=== PATIENT | female | born 1980 | race American Indian/Alaskan Native ===

== ENCOUNTER 2017-01-22 18:50 | Emergency (ER) | payer MEDICAID ==
[2017-01-22 19:02] VITALS: RESP 18; TEMP 99; O2SAT 100; BMI 37.9
--- NOTE | 2017-01-22 19:18 | ED PDOC ---
Arrival/HPI - General Chief Complaint: Back Pain Time Seen by Provider: 01/22/17 19:01 Historian: Patient - History of Present Illness Narrative History of Present Illness (Text): 01/22/17 19:08 A 36 year old female, whose past medical history includes hypertension and Epilepsy on Dilantin, presents to the emergency department complaining of intermittent left upper back pain for 1 month. Patient reports today her pain radiated towards her chest causing her to come in for further evaluation. She states the pain is worse when taking deep breaths and reports she had a nose bleed. Patient notes a headache but denies any trauma, injury, fever, chills, nausea, vomiting, diarrhea, abdominal pain, urinary symptoms, hematuria, hematochezia, dizziness or any other complaints. Time/Duration: Other (1 month) Symptom Course: Worsening (today) Quality: Other Context: Other Past Medical History - Provider Review Nursing Documentation Reviewed: Yes - Infectious Disease Hx of Infectious Diseases: None - Reproductive Menopause: No - Cardiac Hx Hypertension: Yes - Neurological Hx Seizures: Yes - Psychiatric Hx Substance Use: No Family/Social History - Physician Review Nursing Documentation Reviewed: Yes Family/Social History: No Known Family HX Smoking Status: Heavy Smoker > 10 Cigarettes Daily Hx Alcohol Use: No Hx Substance Use: No Allergies/Home Meds Allergies/Adverse Reactions: Allergies tomato Allergy (Verified 01/22/17 19:08) URTICARIA Review of Systems - Physician Review All systems were reviewed & negative as marked: Yes - Review of Systems Constitutional: absent: Fevers, Night Sweats ENT: Epistaxis Cardiovascular: Chest Pain Gastrointestinal: absent: Abdominal Pain, Diarrhea, Nausea, Vomiting, Hematochezia Genitourinary Female: absent: Dysuria, Frequency, Hematuria, Urine Output Changes Musculoskeletal: Back Pain (Left upper back pain) Neurological: Headache. absent: Dizziness Physical Exam Vital Signs Reviewed: Yes Vital Signs Temp Pulse Resp BP Pulse Ox 01/22/17 20:53 68 18 131/86 100 01/22/17 19:01 99.0 F 72 18 133/92 H 100 Temperature: Afebrile Blood Pressure: Hypertensive Pulse: Regular Respiratory Rate: Normal Appearance: Positive for: Well-Appearing, Non-Toxic, Comfortable Pain Distress: None Mental Status: Positive for: Alert and Oriented X 3 - Systems Exam Head: Present: Atraumatic, Normocephalic Pupils: Present: PERRL Conjunctiva: Present: Normal Mouth: Present: Moist Mucous Membranes Pharnyx: Present: Normal. No: ERYTHEMA Nose (External): Present: Atraumatic Nose (Internal): Present: Normal Inspection Neck: Present: Normal Range of Motion Respiratory/Chest: Present: Clear to Auscultation, Good Air Exchange, Tender to Palpation (Reproducible pain with palpation to left 4th intercostal region). No : Respiratory Distress, Accessory Muscle Use Cardiovascular: Present: Regular Rate and Rhythm, Normal S1, S2. No: Murmurs Abdomen: Present: Normal Bowel Sounds. No: Tenderness, Distention, Peritoneal Signs Back: Present: Paraspinal Tenderness (Mid-thoracic paraspinal tenderness). No: Midline Tenderness Upper Extremity: Present: Normal Inspection. No: Cyanosis, Edema Lower Extremity: Present: Normal Inspection. No: Edema Neurological: Present: GCS=15, CN II-XII Intact, Speech Normal Skin: Present: Warm, Dry, Normal Color. No: Rashes Psychiatric: Present: Alert, Oriented x 3, Normal Insight, Normal Concentration Medical Decision Making ED Course and Treatment: 01/22/17 19:08 Impression: A 36 year old female with reproducible left upper back pain radiating towards chest; vitals and ekg are normal. Plan: -- Chest CT -- Chest xray -- EKG -- Labs -- Urinalysis -- Valium and Toradol -- Reassess and disposition Progress Notes: EKG shows NSR at 71 BPM with normal intervals, normal axis, no ST/T changes. Interpreted by me. 01/22/17 21:27 Patient with noted history. came back positive. Beta-HCG is 1900; will hold on imaging due to radiation related to imaging. CT to r/o PE and dissection not needed due to normal d-dimer. Patient given tyelnol for pain. She said she will follow up with her pmd for the . Will d/c on vitamins. - Lab Interpretations Lab Results: 01/22/17 19:28 01/22/17 19:28 Lab Results 01/22/17 19:30: Urine Opiates Screen Negative, Urine Methadone Screen Negative, Ur Barbiturates Screen Negative, Ur Phencyclidine Scrn Negative, Ur Amphetamines Screen Negative, U Benzodiazepines Scrn Negative, U Oth Cocaine Metabols Negative, U Cannabinoids Screen Positive H 01/22/17 19:30: Urine Color Light yellow, Urine Appearance Clear, Urine pH 6.0, Ur Specific Huger 1.020, Urine Protein Negative, Urine Glucose (UA) Negative, Urine Ketones Negative, Urine Blood Trace-lysed H, Urine Nitrate Negative, Urine Bilirubin Negative, Urine Urobilinogen 0.2, Ur Leukocyte Esterase Negative , Urine RBC 2 - 5, Urine WBC 0 - 2, Ur Epithelial Cells 6 - 8, Urine Bacteria Mod 01/22/17 19:28: Beta HCG, Quant 1916.30 H 01/22/17 19:28: Sodium 136, Potassium 3.8, Chloride 102, Carbon Dioxide 27, Anion Gap 11, BUN 6 L, Creatinine 0.7, Est GFR ( Amer) > 60, Est GFR (Non -Af Amer) > 60, Random Glucose 76, Calcium 9.6, Magnesium 1.7, Total Bilirubin 0.6, AST 22, ALT 25, Alkaline Phosphatase 64, Lactate Dehydrogenase 489, Total Creatine Kinase 202, Troponin I < 0.01, Total Protein 7.1, Albumin 4.0, Globulin 3.1, Albumin/Globulin Ratio 1.3, Lipase 115 01/22/17 19:28: PT 10.6, INR 0.98, APTT 30.2, D-Dimer, Quantitative 0.50 01/22/17 19:28: WBC 6.2, RBC 3.83, Hgb 12.3, Hct 36.6, MCV 95.6, MCH 32.1, MCHC 33.6, RDW 12.1, Plt Count 293, MPV 11.0, Gran % 56.2, Lymph % (Auto) 32.4, [place] % (Auto) 8.5 H, Eos % (Auto) 2.6, Baso % (Auto) 0.3, Gran # 3.51, Lymph # 2.0, [place] # 0.5, Eos # 0.2, Baso # 0.02 I have reviewed the lab results: Yes - Medication Orders Current Medication Orders: Discontinued Medications Acetaminophen (Tylenol 325mg Tab) 975 mg PO STAT STA Stop: 01/22/17 19:48 Last Admin: 01/22/17 20:02 Dose: 975 mg Acetaminophen (Tylenol 325mg Tab) Confirm Administered Dose 975 mg .ROUTE .STK- MED ONE Stop: 01/22/17 19:52 Last Admin: 01/22/17 20:04 Dose: Famotidine (Pepcid) 20 mg IVP STAT STA Stop: 01/22/17 19:51 Last Admin: 01/22/17 20:03 Dose: 20 mg - Scribe Statement The provider has reviewed the documentation as recorded by the Luisibtk Sheldon Provider Scribe Attestation: All medical record entries made by the Scribe were at my direction and personally dictated by me. I have reviewed the chart and agree that the record accurately reflects my personal performance of the history, physical exam, medical decision making, and the department course for this patient. I have also personally directed, reviewed, and agree with the discharge instructions and disposition. Disposition/Present on Arrival - Present on Arrival Any Indicators Present on Arrival: No History of DVT/PE: No History of Uncontrolled Diabetes: No Urinary Catheter: No History of Decub. Ulcer: No History Surgical Site Infection Following: None - Disposition Have Diagnosis and Disposition been Completed?: Yes Diagnosis: Atypical chest pain, Muscular pain, Disposition: HOME/ ROUTINE Disposition Time: 21:35 Patient Plan: Discharge Condition: GOOD Discharge Instructions (ExitCare): Chest Pain (ED) Additional Instructions: Drink plenty of fluids. Take vitamins. Follow up with your primary care doctor. Return to the emergency department if any new concerning symptoms. Prescriptions: Vit Calc,Iron,Folic [ Vitamins] 1 each PO DAILY #100 tablet Referrals: Mary Lange, [Primary Care Provider] - Follow up with primary
[2017-01-22 20:07] LABS: ADD MANUAL DIFF? NO
[2017-01-22 20:08] LABS: URINE BILIRUBIN NEGATIVE (NEGATIVE); URINE BLOOD TRACE-LYSED (NEGATIVE); URINE GLUCOSE (UA) NEGATIVE (NEGATIVE); URINE KETONE NEGATIVE (NEGATIVE); URINE LEUKOCYTE ESTERASE NEGATIVE Leu/uL (NEGATIVE); URINE PROTEIN NEGATIVE mg/dL (<30 mg/dL); URINE UROBILINOGEN 0.2 E.U./dL (<1 E.U./dL)
[2017-01-22 20:09] LABS: URINE APPEARANCE CLEAR (CLEAR); URINE COLOR LIGHT YELLOW (YELLOW)
[2017-01-22 20:11] LABS: BASO # 0.02 K/mm3 (0.0-2.0); BASO % 0.3 % (0.0-3.0); EOS # 0.2 (0.0-0.7); EOS % 2.6 % (1.5-5.0); GRAN # 3.51 (1.4-6.5); GRAN % 56.2 % (50.0-68.0); HEMATOCRIT 36.6 % (36.0-48.0); LYMPH % 32.4 % (22.0-35.0); MEAN CELL VOLUME 95.6 fL (80.0-105.0); MEAN CORPUSCULAR HEMOGLOBIN 32.1 pg (25.0-35.0); MEAN CORPUSCULAR HGB CONC 33.6 g/dl (31.0-37.0); MONO # 0.5 (0.1-0.6); MONO % 8.5 % (1.0-6.0); PLATELET COUNT 293 10^3/uL (120.0-450.0); RED CELL DISTRIBUTION WIDTH 12.1 % (11.5-14.5); WHITE BLOOD COUNT 6.2 10^3/ul (4.5-11.0)
[2017-01-22 20:25] LABS: ALB/GLOB RATIO 1.3 (1.1-1.8); ALKALINE PHOSPHATASE 64 U/L (38-133); ALT/SGPT 25 U/L (7-56); AST/SGOT 22 U/L (15-39); BILIRUBIN,TOTAL 0.6 mg/dL (0.2-1.3); BLOOD UREA NITROGEN 6 mg/dL (7-21); CALCIUM 9.6 mg/dL (8.4-10.5); CARBON DIOXIDE 27 mmol/L (21-33); CHLORIDE 102 mmol/L (98-107); GFR AFRICAN-AMERICAN > 60; GLUCOSE,RANDOM 76 mg/dL (70-110); LIPASE 115 U/L (23-300); MAGNESIUM 1.7 mg/dL (1.7-2.2); POTASSIUM 3.8 mmol/L (3.6-5.0); SODIUM 136 mmol/L (132-148); TOTAL PROTEIN 7.1 g/dL (5.8-8.3)
[2017-01-22 20:38] LABS: TROPONIN I < 0.01 ng/mL
[2017-01-22 20:39] LABS: INR 0.98 (0.93-1.08); PARTIAL THROMBOPLASTIN TIME 30.2 Seconds (23.7-30.8)
[2017-01-22 20:48] LABS: D DIMER 0.5 mg/L FEU (0-0.50)
[2017-01-22 20:53] VITALS: BP 131/86; PULSE 68
[2017-01-22 20:56] LABS: URINE BACTERIA MOD (NEG); URINE WBC 0 - 2 /hpf (0-6)
--- NOTE | 2017-01-23 10:39 | CARD ---
APPROVED REPORT EKG Measurement Heart [id number] <Conclusion> Normal sinus rhythm Normal ECG
== END 2017-01-22 21:36 | disposition home or self-care (01) ==
LOC: ED 18:50
DX: O26.90 Pregnancy related conditions, unspecified, unspecified trimester (principal); Z3A.00 Weeks of gestation of pregnancy not specified; R07.89 Other chest pain; M79.1 Myalgia; I10 Essential (primary) hypertension; F17.210 Nicotine dependence, cigarettes, uncomplicated